=== PATIENT | female | born 1995 | race Two or more races ===

== ENCOUNTER 2017-10-06 08:43 | Day surgery (SDC) | payer SELFPAY ==
[2017-10-06] MEDS ORDERED: SUCCINYLCHOLINE CHLORIDE INJ 200 MG/10 ML VIAL ONE (09:10)
[2017-10-06] MEDS ORDERED: ROCURONIUM BROMIDE INJ 50 MG/5 ML VIAL IV ONE (09:10)
[2017-10-06] MEDS ORDERED: ONDANSETRON HCL INJ/PF 4 MG/2 ML SDV IV ONE ×2 (09:12→11:56)
[2017-10-06] MEDS ORDERED: DICYCLOMINE HCL INJ 20 MG/2 ML AMPULE IM ONE (09:12)
[2017-10-06] MEDS ORDERED: NORMAL SALINE 1000 ML 1,000 ML IV ONE (09:12)
[2017-10-06 09:56] LABS: ABSOLUTE EOSINOPHILS # (AUTO) 0.1 10^3/uL (0.0-0.6); ABSOLUTE LYMPHOCYTES (AUTO) 1.9 10^3/uL (0.5-4.7); ABSOLUTE MONOCYTES (AUTO) 0.5 10^3/uL (0.1-1.4); ABSOLUTE NEUT (AUTO) 3.1 10^3/uL (1.7-8.2); BASOPHILS % (AUTO) 0.4 % (0-2); EOSINOPHILS % (AUTO) 2.1 % (0-6); HEMATOCRIT 38.7 % (36.0-47.0); HEMOGLOBIN 12.3 g/dL (12.0-15.5); LYMPHOCYTES % (AUTO) 33.6 % (13-45); MEAN CORPUSCULAR HEMOGLOBIN 23.7 pg (27.0-33.4); MEAN CORPUSCULAR HGB CONC 31.7 g/dL (32.0-36.0); MEAN CORPUSCULAR VOLUME 75 fl (80-97); MONOCYTES % (AUTO) 9.1 % (3-13); PLATELET COUNT 418 10^3/uL (150-450); RED BLOOD COUNT 5.17 10^6/uL (3.72-5.28); RED CELL DISTRIBUTION WIDTH 16.5 % (11.5-14.0); SEGMENTED NEUTROPHILS % (AUTO) 54.8 % (42-78); TOTAL CELLS COUNTED % (AUTO) 100 %; WHITE BLOOD COUNT 5.7 10^3/uL (4.0-10.5)
[2017-10-06 10:16] LABS: ALANINE AMINOTRANSFERASE 77 U/L (9-52); ALBUMIN 4.3 g/dL (3.5-5.0); ALKALINE PHOSPHATASE 66 U/L (38-126); ANION GAP 12 (5-19); ASPARTATE AMINO TRANSFERASE 40 U/L (14-36); BILIRUBIN,DIRECT 0.2 mg/dL (0.0-0.4); BILIRUBIN,TOTAL 0.2 mg/dL (0.2-1.3); BLOOD UREA NITROGEN 17 mg/dL (7-20); CALCIUM 9.8 mg/dL (8.4-10.2); CARBON DIOXIDE 27 mmol/L (22-30); CHLORIDE 106 mmol/L (98-107); GLUCOSE 135 mg/dL (75-110); LIPASE 134.9 U/L (23-300); POTASSIUM 4.3 mmol/L (3.6-5.0); SODIUM 144.5 mmol/L (137-145)
--- NOTE | 2017-10-06 10:23 | RADIOLOGY REPORT (SQ) ---
EXAM DESCRIPTION: U/S ABDOMEN LIMITED W/O DOP COMPLETED DATE/TIME: 10/06/2017 9:55 am REASON FOR STUDY: RUQ PAIN COMPARISON: None. TECHNIQUE: Dynamic and static grayscale images acquired of the abdomen and recorded on PACS. Additio nal selected color Doppler and spectral images recorded. LIMITATIONS: None. FINDINGS: PANCREAS: The tail is not visualized. Visualized portions of the head and body are grossl y unremarkable. LIVER: Increased echogenicity with coarsened echotexture. Limited evaluation of the parenchyma secon shell to these findings. LIVER VASCULATURE: Normal directional flow of the main portal vein. GALLBLADDER: There is a 2.1 cm stone that is non mobile and situated within the neck of the gallbladd er. The gallbladder is hydropic at 13 cm in size. No wall thickening or pericholecystic fluid. ULTRASOUND-DETECTED GILMORE'S SIGN: Negative. INTRAHEPATIC DUCTS AND COMMON DUCT: CBD and intrahepatic ducts normal caliber. No filling defects. AORTA: No aneurysm. RIGHT KIDNEY: Normal size. Normal echogenicity. No solid or suspicious masses. No hydronephrosis. No calcifications. PERITONEAL AND RIGHT PLEURAL SPACE: No ascites or effusions. OTHER: No other significant findings. IMPRESSION: Cholelithiasis with a hydropic gallbladder and no gallbladder wall thickening or pericho lecystic fluid. These findings are equivocal for acute cholecystitis. TECHNICAL DOCUMENTATION: JOB ID: [id number] [employer]- All Rights Reserved Reading location - IP/workstation name: [email or web address]
[2017-10-06 11:42] LABS: APPEARANCE,URINE SLIGHTLY-CLOUDY; BILIRUBIN,URINE NEGATIVE (NEGATIVE); COLOR,URINE YELLOW; GLUCOSE, URINE NEGATIVE (NEGATIVE); KETONES,URINE NEGATIVE (NEGATIVE); LEUKOCYTE ESTERASE,URINE MODERATE (NEGATIVE); NITRITE,URINE NEGATIVE (NEGATIVE); PROTEIN,URINE NEGATIVE (NEGATIVE); URINE SPECIFIC GRAVITY 1.029
[2017-10-06] MEDS ORDERED: MORPHINE SULFATE 10 MG/ML INJ IV ONE (11:56)
[2017-10-06] MEDS ORDERED: RINGERS SOLUTION,LACTATED 1,000 ML IV ONE (11:57)
[2017-10-06] MEDS ORDERED: CEFOXITIN 1 GM/D5W RTU 1 GM/50 ML RTUPB IV ONE ×2 (12:06→12:07)
--- NOTE | 2017-10-06 12:12 | PDOC H&P ---
History of Present Illness Admission Date/PCP: 10/06/17 Patient complains of: RUQ pain History of Present Illness: FATIMAH FERNANDEZ is a 21 year old female with a 12 hr hx of RUQ pain, intense nausea; an US of the GB was done revealing hydrops of the GB with stones. Social History Smoking Status: Current Some Day Smoker Frequency of Alcohol Use: Occasional Hx Recreational Drug Use: Yes Drugs: Marijuana Family History Family History: Reviewed & Not Pertinent Parental Family History Reviewed: No Children Family History Reviewed: No Sibling(s) Family History Reviewed.: No Medication/Allergy Allergies/Adverse Reactions: No Known Allergies Allergy (Unverified 10/06/17 08:46) Physical Exam Vital Signs: Temp Pulse Resp BP Pulse Ox 98.2 F 84 19 148/83 H 99 10/06/17 08:49 10/06/17 08:49 10/06/17 08:49 10/06/17 08:49 10/06/17 08:49 Intake & Output 10/05/17 10/06/17 10/07/17 06:59 06:59 06:59 Weight 117.5 kg General appearance: PRESENT: no acute distress Eye exam: PRESENT: EOMI Mouth exam: PRESENT: moist Neck exam: PRESENT: full ROM Cardiovascular exam: PRESENT: RRR GI/Abdominal exam: PRESENT: soft, tenderness - RUQ Results Laboratory Results: 10/06/17 09:25 10/06/17 09:25 10/06/17 10/06/17 10/06/17 09:25 09:25 09:25 WBC 5.7 RBC 5.17 Hgb 12.3 Hct 38.7 MCV 75 L MCH 23.7 L MCHC 31.7 L RDW 16.5 H Plt Count 418 Seg Neutrophils % 54.8 Lymphocytes % 33.6 Monocytes % 9.1 Eosinophils % 2.1 Basophils % 0.4 Absolute Neutrophils 3.1 Absolute Lymphocytes 1.9 Absolute Monocytes 0.5 Absolute Eosinophils 0.1 Absolute Basophils 0.0 Sodium 144.5 Potassium 4.3 Chloride 106 Carbon Dioxide 27 Anion Gap 12 BUN 17 Creatinine 0.60 Est GFR ( Amer) > 60 Est GFR (Non-Af Amer) > 60 Glucose 135 H Calcium 9.8 Total Bilirubin 0.2 AST 40 H ALT 77 H Alkaline Phosphatase 66 Total Protein 7.0 Albumin 4.3 Lipase 134.9 Serum HCG, Qual NEGATIVE Urine Color Urine Appearance Urine pH Ur Specific [place] Urine Protein Urine Glucose (UA) Urine Ketones Urine Blood Urine Nitrite Ur Leukocyte Esterase Urine WBC (Auto) Urine RBC (Auto) 10/06/17 10:52 WBC RBC Hgb Hct MCV MCH MCHC RDW Plt Count Seg Neutrophils % Lymphocytes % Monocytes % Eosinophils % Basophils % Absolute Neutrophils Absolute Lymphocytes Absolute Monocytes Absolute Eosinophils Absolute Basophils Sodium Potassium Chloride Carbon Dioxide Anion Gap BUN Creatinine Est GFR ( Amer) Est GFR (Non-Af Amer) Glucose Calcium Total Bilirubin AST ALT Alkaline Phosphatase Total Protein Albumin Lipase Serum HCG, Qual Urine Color YELLOW Urine Appearance SLIGHTLY-CLOUDY Urine pH 5.0 Ur Specific [place] 1.029 Urine Protein NEGATIVE Urine Glucose (UA) NEGATIVE Urine Ketones NEGATIVE Urine Blood NEGATIVE Urine Nitrite NEGATIVE Ur Leukocyte Esterase MODERATE H Urine WBC (Auto) 12 Urine RBC (Auto) 1 Impressions: Abdomen Ultrasound 10/06/17 09:12 IMPRESSION: Cholelithiasis with a hydropic gallbladder and no gallbladder wall thickening or pericholecystic fluid. These findings are equivocal for acute cholecystitis. Assessment & Plan - Plan Summary Plan Summary: A/ Symptomatic cholelithiasis with hydrops of the GB Slight elevation of LFT Remaining blood work WNL P/ NPO IV Hydration Mefoxin 2 gr IVPB preop Laparoscopci cholecystectomy, possible open, possible cholangiogram Procedure, risks, benefits, complications, including bleeding from the liver and or injury of the bile ducts requiring transfer to a tertiary center have bee d/w patient, her questions were answered, and she decided to proceed
[2017-10-06] MEDS ORDERED: MORPHINE SULFATE 10 MG/ML INJ IV PRN (13:11)
--- NOTE | 2017-10-06 13:13 | ER Document Report ---
ED General - General Chief Complaint: Abdominal Pain Stated Complaint: STOMACH PAIN Time Seen by Provider: 10/06/17 09:07 TRAVEL OUTSIDE OF THE [place] IN LAST 30 DAYS: No - HPI Patient complains to provider of: Abdominal pain Notes: Patient coming in for evaluation of right upper quadrant abdominal pain sharp radiating to her back. Patient also states nausea no vomiting no diarrhea no fevers. Patient states started around 2:00 worse earlier this morning. Patient has a known gallstones. Patient when asked what she had a ER last meal was very unclear. Patient denies any other past medical history does not take any other medications. - Related Data Allergies/Adverse Reactions: No Known Allergies Allergy (Unverified 10/06/17 08:46) Past Medical History - Social History Smoking Status: Current Some Day Smoker Frequency of alcohol use: Occasional Drug Abuse: Marijuana Family History: Reviewed & Not Pertinent Patient has suicidal ideation: No Patient has homicidal ideation: No Renal/ Medical History: Denies: Hx Peritoneal Dialysis Review of Systems - Review of Systems Constitutional: No symptoms reported EENT: No symptoms reported Cardiovascular: No symptoms reported Respiratory: No symptoms reported Gastrointestinal: Abdominal pain Genitourinary: No symptoms reported Female Genitourinary: No symptoms reported Musculoskeletal: No symptoms reported Skin: No symptoms reported Hematologic/Lymphatic: No symptoms reported Neurological/Psychological: No symptoms reported -: Yes All other systems reviewed and negative Physical Exam - Vital signs Vitals: Temp Pulse Resp BP Pulse Ox 98.2 F 84 19 148/83 H 99 10/06/17 08:49 10/06/17 08:49 10/06/17 08:49 10/06/17 08:49 10/06/17 08:49 Interpretation: Normal - General General appearance: Appears well, Alert - HEENT Head: Normocephalic, Atraumatic Eyes: Normal Pupils: PERRL - Respiratory Respiratory status: No respiratory distress Chest status: Nontender Breath sounds: Normal Chest palpation: Normal - Cardiovascular Rhythm: Regular Heart sounds: Normal auscultation Murmur: No - Abdominal Inspection: Normal Distension: No distension Bowel sounds: Normal Tenderness: Tender - Right upper quadrant tenderness moderate, Baez's sign Organomegaly: No organomegaly - Back Back: Normal, Nontender - Extremities General upper extremity: Normal inspection, Nontender, Normal color, Normal ROM , Normal temperature General lower extremity: Normal inspection, Nontender, Normal color, Normal ROM , Normal temperature, Normal weight bearing. No: Opal's sign - Neurological Neuro grossly intact: Yes Cognition: Normal Orientation: AAOx4 Jacek Coma Scale Eye Opening: Spontaneous Jacek Coma Scale Verbal: Oriented Jacek Coma Scale Motor: Obeys Commands [place] Coma Scale Total: 15 Speech: Normal Motor strength normal: LUE, RUE, LLE, RLE Sensory: Normal - Psychological Associated symptoms: Normal affect, Normal mood - Skin Skin Temperature: Warm Skin Moisture: Dry Skin Color: Normal Course - Re-evaluation Re-evalutation: 10/06/17 14:38 Patient was to have symptomatic cholelithiasis. Did discuss results with surgeon on-call Dr. Baires who agrees to take the patient to the OR. Patient agrees with operative management. Patient was given cefoxitin 2 g per surgeon request - Vital Signs Vital signs: Temp Pulse Resp BP Pulse Ox 98.2 F 84 19 148/83 H 99 10/06/17 08:49 10/06/17 08:49 10/06/17 08:49 10/06/17 08:49 10/06/17 08:49 - Laboratory Result Diagrams: 10/06/17 09:25 10/06/17 09:25 Laboratory results interpreted by me: 10/06/17 10/06/17 10/06/17 09:25 09:25 10:52 MCV 75 L MCH 23.7 L MCHC 31.7 L RDW 16.5 H Glucose 135 H AST 40 H ALT 77 H Urine Urobilinogen 2.0 H Ur Leukocyte Esterase MODERATE H Discharge - Discharge Clinical Impression: Symptomatic cholelithiasis Condition: Good Disposition: ADMITTED OBSERVATION Admitting Provider: Surgicalist Haramn Baires Unit Admitted: OR
[2017-10-06] MEDS ORDERED: PROPOFOL INJ 200 MG/20 ML VIAL IV ONE (14:14)
[2017-10-06] MEDS ORDERED: ACETAMINOPHEN 100 ML IV ONE (14:14)
[2017-10-06] MEDS ORDERED: MIDAZOLAM 2 MG/2 ML INJ ONE (14:14)
[2017-10-06] MEDS ORDERED: DEXAMETHASONE SOD PHOSPHATE INJ 4 MG/1 ML VIAL ONE (14:14)
[2017-10-06] MEDS ORDERED: FENTANYL CITRATE INJ/PF 100 MCG/2 ML AMPUL ONE (14:14)
[2017-10-06] MEDS ORDERED: ONDANSETRON HCL INJ/PF 4 MG/2 ML SDV ONE (14:14)
[2017-10-06] MEDS ORDERED: BUPIVACAINE HCL 0.5%-EPI 1:200000 INJ/PF 30 ML VIAL ONE (14:29)
[2017-10-06] MEDS ORDERED: DIPHENHYDRAMINE HCL 50 MG/ML VIAL IV PRN (14:47)
[2017-10-06] MEDS ORDERED: MEPERIDINE HCL/PF INJ 25 MG/1 ML DISP.SYRIN IV PRN (14:47)
[2017-10-06] MEDS ORDERED: OXYCODONE-ACETAMINOPHEN 5-325 MG TABLET PO PRN ×2 (14:47)
[2017-10-06] MEDS ORDERED: FENTANYL CITRATE INJ/PF 100 MCG/2 ML AMPUL IV PRN ×3 (14:47)
[2017-10-06] MEDS ORDERED: PROMETHAZINE HCL INJ 25 MG/1 ML VIAL IV PRN ×2 (14:47)
[2017-10-06] MEDS ORDERED: OXYCODONE-ACETAMINOPHEN 5-325 MG TABLET ONE (16:15)
[2017-10-06] MEDS ORDERED: ONDANSETRON HCL INJ/PF 4 MG/2 ML SDV IV PRN ×2 (16:28→17:23)
[2017-10-06] MEDS ORDERED: KETOROLAC TROMETHAMINE INJ/PF 30 MG/1 ML SDV ONE (16:40)
[2017-10-06] MEDS: MORPHINE SULFATE 10 MG/ML INJ IV PRN (17:10)
--- NOTE | 2017-10-06 20:50 | OPERATIVE REPORT E ---
Operative Report NAME: FATIMAH FERNANDEZ : 1995 AGE: 21Y DATE OF SURGERY: 10/06/2017 ROOM: 228 PREOPERATIVE DIAGNOSES: 1. Symptomatic cholelithiasis. 2. Hydrops of the gallbladder. POSTOPERATIVE DIAGNOSES: 1. Symptomatic cholelithiasis. 2. Hydrops of the gallbladder. OPERATION: Laparoscopic cholecystectomy. SURGEON: NELA ARANA M.D. BRIM POUNCER: None. ESTIMATED BLOOD LOSS: Less than 5 mL. COMPLICATIONS: None. ANESTHESIA: General plus 20 mL of 1% lidocaine with epinephrine. FLUIDS: 700 mL. URINE OUTPUT: Moderate. DRAINS: None. INDICATIONS AND FINDINGS: This is a young, 21-year-old, -Stateless female who presented to the hospital with a 12 hour history of right upper quadrant pain, epigastric pain, intense nausea, and found to have cholelithiasis on ultrasound with normal liver profile. Decision was made to take the patient to surgery to undergo a laparoscopic cholecystectomy, possible open cholangiogram. Procedure risks and benefits and complications were explained to the patient including a possibility of bleeding or injury of the common bile duct which might require a repair in a tertiary center. All her questions were answered. She decided to proceed. DESCRIPTION OF PROCEDURE: Procedure was done in the operating room. The patient was placed in the supine position. General anesthesia was induced by endotracheal intubation. Her abdomen was prepped and draped in the usual fashion. An incision was made just below the umbilicus. The skin was tethered with towel clips, and a 5 mm port with Optiview adaptor and the scope was inserted through the abdominal wall and a CO2 pneumoperitoneum was established. Under direct visualization, three additional ports one 12 mm and two 5 mm ports were placed in the epigastrium and right lower quadrant of the abdomen, respectively. The gallbladder was grasped at the level of the fundus and elevated. The neck of the gallbladder was then grasped and pulled anteriorly to the patient's left. The critical view of safety was obtained by dividing the gallbladder neck peritoneal attachements medially and laterally. The dissection was then continued toward the cystic duct until a critical view of safety was obtained. Visualization of the cystic duct was accomplished with a Hook cautery at low settings and a 10 mm clip maple sugar maker was fired proximally and distally to the cystic duct division point, and this was then divided with scissors. The cystic duct was then divided posteriorly after it was singly clipped proximally and distally. The gallbladder was dissected off the liver bed using hook cautery at higher settings and extracted from the peritoneal cavity using an Endobag. The CO2 pneumoperitoneum was then re-established. The liver bed was inspected. No active bleeding was noted. The liver bed was irrigated with normal saline until clear, and this was slowly aspirated. Under direct visualization, using a fascial closure device, a bibrcl-ox-xpdbf O Vicryl suture was placed to close the epigastric fascial defect. The suture was left untied. All instruments were removed. The CO2 pneumoperitoneum was released. The ports were removed. The fascial defect of the epigastrium was closed with the previously placed pqrgbu-cz-lpipw 0 Vicryl suture. All incisions were closed with 4-O Vicryl running subcuticular suture with Dermabond applied. The patient tolerated the procedure well, was extubated, and transferred to the recovery room in satisfactory condition. DICTATING PHYSICIAN: NELA ARANA M.D. [id number] PHY#: [id number] ID: [id number] JOB#: [id number] ACCT: [id number] cc:NELA ARANA M.D. > MTDD
[2017-10-06] MEDS: CEFOXITIN SODIUM 2 GM in DEXTROSE 5%-WATER 100 ML IV SCH (21:24)
[2017-10-06] MEDS: FAMOTIDINE INJ/PF 20 MG/2 ML SDV IV SCH (21:24)
[2017-10-07] MEDS: MORPHINE SULFATE 10 MG/ML INJ IV PRN ×4 (00:05→08:49)
[2017-10-07] MEDS: NORMAL SALINE 1000 ML 1,000 ML IV PRN ×2 (01:06→10:59)
[2017-10-07] MEDS: CEFOXITIN SODIUM 2 GM in DEXTROSE 5%-WATER 100 ML IV SCH (05:32)
[2017-10-07] MEDS ORDERED: ENOXAPARIN SODIUM INJ 40 MG/0.4 ML DISP.SYRIN SUBCUT SCH (06:00)
[2017-10-07 07:38] LABS: ABSOLUTE BASOPHILS # (AUTO) 0.1 10^3/uL (0.0-0.2); ABSOLUTE LYMPHOCYTES (AUTO) 1.2 10^3/uL (0.5-4.7); ABSOLUTE MONOCYTES (AUTO) 0.5 10^3/uL (0.1-1.4); ABSOLUTE NEUT (AUTO) 9.4 10^3/uL (1.7-8.2); BASOPHILS % (AUTO) 0.7 % (0-2); EOSINOPHILS % (AUTO) 0.3 % (0-6); HEMATOCRIT 35.1 % (36.0-47.0); LYMPHOCYTES % (AUTO) 10.4 % (13-45); MEAN CORPUSCULAR HEMOGLOBIN 23.3 pg (27.0-33.4); MEAN CORPUSCULAR HGB CONC 31.3 g/dL (32.0-36.0); MEAN CORPUSCULAR VOLUME 75 fl (80-97); MONOCYTES % (AUTO) 4.7 % (3-13); PLATELET COUNT 411 10^3/uL (150-450); RED CELL DISTRIBUTION WIDTH 16.6 % (11.5-14.0); SEGMENTED NEUTROPHILS % (AUTO) 83.9 % (42-78); TOTAL CELLS COUNTED % (AUTO) 100 %; WHITE BLOOD COUNT 11.2 10^3/uL (4.0-10.5)
[2017-10-07 07:58] LABS: ALANINE AMINOTRANSFERASE 97 U/L (9-52); ALBUMIN 3.6 g/dL (3.5-5.0); ALKALINE PHOSPHATASE 61 U/L (38-126); ANION GAP 11 (5-19); ASPARTATE AMINO TRANSFERASE 69 U/L (14-36); BILIRUBIN,DIRECT 0.2 mg/dL (0.0-0.4); BILIRUBIN,TOTAL 0.2 mg/dL (0.2-1.3); BLOOD UREA NITROGEN 11 mg/dL (7-20); CALCIUM 9.5 mg/dL (8.4-10.2); CARBON DIOXIDE 23 mmol/L (22-30); CHLORIDE 109 mmol/L (98-107); GLUCOSE 124 mg/dL (75-110); POTASSIUM 4.3 mmol/L (3.6-5.0); SODIUM 142.9 mmol/L (137-145); TOTAL PROTEIN 6.5 g/dL (6.3-8.2)
[2017-10-07] MEDS: FAMOTIDINE INJ/PF 20 MG/2 ML SDV IV SCH (10:59)
--- NOTE | 2017-10-07 12:39 | PDOC PROGRESS REPORT ---
Subjective Progress Note for:: 10/07/17 Subjective:: no c/o Reason For Visit: SYMPTOMATIC CHOLELITHIASIS Physical Exam Vital Signs: Temp Pulse Resp BP Pulse Ox 97.8 F 78 16 119/61 99 10/07/17 11:05 10/07/17 11:05 10/07/17 11:05 10/07/17 11:05 10/07/17 11:05 Intake & Output 10/06/17 10/07/17 10/08/17 06:59 06:59 06:59 Intake Total 1200 Output Total 500 Balance 700 General appearance: PRESENT: no acute distress Respiratory exam: PRESENT: clear to auscultation edson Cardiovascular exam: PRESENT: RRR GI/Abdominal exam: PRESENT: soft, other - incisions c/d/i Results Laboratory Results: 10/07/17 07:16 10/07/17 07:16 10/07/17 10/07/17 07:16 07:16 WBC 11.2 H RBC 4.70 Hgb 11.0 L Hct 35.1 L MCV 75 L MCH 23.3 L MCHC 31.3 L RDW 16.6 H Plt Count 411 Seg Neutrophils % 83.9 H Lymphocytes % 10.4 L Monocytes % 4.7 Eosinophils % 0.3 Basophils % 0.7 Absolute Neutrophils 9.4 H Absolute Lymphocytes 1.2 Absolute Monocytes 0.5 Absolute Eosinophils 0.0 Absolute Basophils 0.1 Sodium 142.9 Potassium 4.3 Chloride 109 H Carbon Dioxide 23 Anion Gap 11 BUN 11 Creatinine 0.58 Est GFR ( Amer) > 60 Est GFR (Non-Af Amer) > 60 Glucose 124 H Calcium 9.5 Total Bilirubin 0.2 AST 69 H ALT 97 H Alkaline Phosphatase 61 Total Protein 6.5 Albumin 3.6 Impressions: Abdomen Ultrasound 10/06/17 09:12 IMPRESSION: Cholelithiasis with a hydropic gallbladder and no gallbladder wall thickening or pericholecystic fluid. These findings are equivocal for acute cholecystitis. Assessment & Plan - Plan Summary Plan Summary: A/ POD#1 after lap rocky for symptomatic cholelithiasis VSS, AF Tolerating po well WBC slight elevated, mnost likely reactive Slight elevateion ALT/ASt with normal total bilirubin PE unremarkable P/ Home today F/u in the office with NITHYA López in 1 week Tylenol only for pain Return to work on 10/19/17 No wound care needed shower only, bathe in 2 weeks Return to all activities without limitations
[2017-10-07 13:26] VITALS: BP 128/72
--- NOTE | 2017-10-07 16:34 | DISCHARGE SUMMARY E ---
Discharge Summary NAME: FATIMAH FERNANDEZ : 1995 AGE: 21Y ADMITTED: 10/06/2017 DISCHARGED: 10/07/2017 FINAL DIAGNOSIS: Symptomatic cholelithiasis. PROCEDURE PERFORMED: Laparoscopic cholecystectomy performed on October 06, 2017. COMPLICATIONS: None. HOSPITAL COURSE: This is a 21-year-old female, healthy, who came to the hospital with a 12-hour history of right upper quadrant pain and intense nausea. She was found to have symptomatic cholelithiasis. The patient underwent an uneventful laparoscopic cholecystectomy on October 06, 2017. She was hospitalized overnight. Her fluids were then hep-locked. Her oral intake was well tolerated. She complained of minimal abdominal pain and blood work was within normal limits. Her vital signs remained stable. Physical examination was unremarkable. The patient was discharged home on October 07, 2017. DISCHARGE ORDERS: The patient was discharged on October 07, 2017. Follow-up appointment in the surgery clinic with the physician outpatient physical therapist assistant, Amaya Giron, in one week. Tylenol only for pain. Shower only, bathe in two weeks. Return to work next week on Thursday October 19, 2017, without limitations. Regular diet. DICTATING PHYSICIAN: NEAL ARANA M.D. [id number] PHY#: [id number] ID: [id number] JOB#: [id number] ACCT: [id number] cc:Ana M WOLF MD, M.D. [facility], >
== END 2017-10-07 13:41 | disposition home or self-care (01) ==
LOC: ER 08:43 → OROUT 13:29 → EH 13:29 → UNDOADMOB 13:29 → ER 13:29 → 2S 16:48 → EH 16:48 → 2S 16:48 → UNDODISOB 10-07 13:41 → OROUT 10-07 13:41
PROVIDERS: ATTEND Surgery
PROC: 0FT44ZZ Resection of Gallbladder, Percutaneous Endoscopic Approach (ICD-10-PCS; principal; 2017-10-06 15:00)
DX: K80.10 Calculus of gallbladder with chronic cholecystitis without obstruction (principal); K82.1 Hydrops of gallbladder; F17.200 Nicotine dependence, unspecified, uncomplicated; F12.10 Cannabis abuse, uncomplicated
CPT/HCPCS: 47562; 99285; 96372; 96361; 96375; 96365; 36415 ×2; 87040; 83690; 84703; 85025 ×2; 80053 ×2; 81001; 88304 ×2; 76705; J2250; J3490 ×2; J1100; J0500; J0694 ×3; J3010; J1885; J2270 ×2; J0330; J2405; J7030 ×2; J7120; J2704; S0028 ×2; J0131; 790

== ENCOUNTER 2019-11-19 08:32 | Emergency (ER) | payer SELFPAY ==
--- NOTE | 2019-11-19 09:46 | ER Document Report ---
ED General - General Chief Complaint: Vag Bleeding, +preg <12wks Stated Complaint: VAGINAL BLEEDING Time Seen by Provider: 11/19/19 09:16 Primary Care Provider: [facility] [Provider Group] - Follow up in 3-5 days Notes: Patient is a G2, P1 23-year-old female who presents emergency department who presents the emergency department with vaginal bleeding. Patient states that she is about 4 weeks . Last menstrual cycle was November 15. She states that this morning when she woke up she felt a little bit of cramping and when she went to go wipe, saw a little bit of blood on her toilet paper. Patient denies any clots. Denies any past medical history. She does not take any medications. Started vitamins the other day. Has not seen OB for care yet. TRAVEL OUTSIDE OF THE [place] IN LAST 30 DAYS: No - Related Data Allergies/Adverse Reactions: No Known Allergies Allergy (Unverified 10/06/17 08:46) Past Medical History - Social History Smoking Status: Never Smoker Family History: Reviewed & Not Pertinent Patient has homicidal ideation: No Renal/ Medical History: Denies: Hx Peritoneal Dialysis Review of Systems - Review of Systems Notes: REVIEW OF SYSTEMS: CONSTITUTIONAL : Denies recent illness. Denies recent unintentional weight loss. Denies fever, chills, or sweats. EENT: Denies eye, ear, throat, or mouth pain, discharge, or symptoms. Denies nasal or sinus congestion. CARDIOVASCULAR: Denies chest pain. RESPIRATORY: Denies shortness of breath, cough, congestion, difficulty breathing, or wheezing. GASTROINTESTINAL: Denies nausea, vomiting, and diarrhea. Denies abdominal pain. Denies constipation. GENITOURINARY: Denies difficulty urinating, burning, blood in urine, urgency or frequency. FEMALE GENITOURINARY: See HPI. MUSCULOSKELETAL: Denies neck and back pain. Denies joint pain or swelling. SKIN: Denies rash, itchiness, or lesions HEMATOLOGIC : Denies easy bruising or bleeding. LYMPHATIC: Denies swollen, painful, enlarged glands. NEUROLOGICAL: Denies no numbness or tingling denies weakness. Denies headache. Denies altered mental status. Denies alteration in speech. PSYCHIATRIC: Denies stress, anxiety, alteration in sleep patterns, or depression. All other systems reviewed and negative. Physical Exam - Vital signs Vitals: Temp Pulse Resp BP Pulse Ox 98.6 F 78 18 134/68 H 100 11/19/19 08:44 11/19/19 08:44 11/19/19 08:44 11/19/19 08:44 11/19/19 08:44 - Notes Notes: PHYSICAL EXAMINATION: GENERAL: Appears well, healthy, well-nourished, no acute distress. HEAD: Normocephalic, atraumatic. EYES: PERRL, conjunctiva normal, all extraocular movements intact, sclera nonicteric ENT: Moist mucous membranes. NECK: Supple, no noticeable swelling, redness, rash. Normal range of motion. LUNGS: Equal breath sounds bilaterally and clear to auscultation. No wheezes rales or rhonchi. CARDIOVASCULAR: S1-S2, regular rate, regular rhythm. Radial pulses 2+, normal. ABDOMEN: Normoactive bowel sounds. Soft, nontender, no guarding, no rebound tenderness, and no masses palpated. EXTREMITIES: Normal strength and range of motion, no pitting or edema. No cyanosis. NEUROLOGICAL: Moves all extremities upon command. Strength 5/5 in all extremities. PSYCH: Normal mood, normal affect. SKIN: Warm, dry. No rash, lesions, ulcerations noted. Normal skin turgor. Course - Re-evaluation Re-evalutation: 11/19/19 13:03 Patient has a gestational sac, in her uterus off of ultrasound. Lab results confirmed that she is with a quantitative beta-hCG of 3005. Chemistries are unremarkable. Laboratory studies are also unremarkable. Urinalysis shows she has ketones in her urine. Advised the patient to drink more fluids. She is in agreement with this plan. She will follow-up with OB. Patient will also receive her RhoGam shot here in the emergency department. Follow-up precautions were given. Verbal discharge instructions were given to the patient. They verbalized understanding. They are stable for discharge. - Vital Signs Vital signs: Temp Pulse Resp BP Pulse Ox 98.0 F 87 20 115/67 98 11/19/19 13:57 11/19/19 13:57 11/19/19 13:57 11/19/19 13:57 11/19/19 13:57 - Laboratory Result Diagrams: 11/19/19 10:20 11/19/19 10:20 Laboratory results interpreted by me: 11/19/19 11/19/19 11/19/19 10:20 10:20 11:20 WBC 3.7 L Hgb 11.4 L Hct 35.6 L MCV 75 L MCH 24.1 L RDW 16.0 H Beta HCG, Quant 3005.00 H Urine Protein 30 H Urine Ketones 80 H Ur Leukocyte Esterase TRACE H Urine Ascorbic Acid 40 H Discharge - Discharge Clinical Impression: Vaginal bleeding during Condition: Stable Disposition: HOME, SELF-CARE Additional Instructions: You were seen today in the emergency department vaginal bleeding. You received your RhoGam shot here in the emergency department. Please follow-up with OB in regards to this visit for follow-up labs. Please do not have sex or place anyt rosa in your vagina until you are cleared by OB. If you start passing clots, return to the emergency department or follow-up with your OB. Referrals: [facility] [Provider Group] - Follow up in 3-5 days
[2019-11-19 10:33] LABS: ABSOLUTE LYMPHOCYTES (AUTO) 1.3 10^3/uL (0.5-4.7); ABSOLUTE MONOCYTES (AUTO) 0.3 10^3/uL (0.1-1.4); BASOPHILS % (AUTO) 0.9 % (0-2); EOSINOPHILS % (AUTO) 0.4 % (0-6); HEMATOCRIT 35.6 % (36.0-47.0); HEMOGLOBIN 11.4 g/dL (12.0-15.5); LYMPHOCYTES % (AUTO) 34.6 % (13-45); MEAN CORPUSCULAR HEMOGLOBIN 24.1 pg (27.0-33.4); MEAN CORPUSCULAR HGB CONC 32.1 g/dL (32.0-36.0); MEAN CORPUSCULAR VOLUME 75 fl (80-97); MONOCYTES % (AUTO) 9.5 % (3-13); PLATELET COUNT 419 10^3/uL (150-450); RED BLOOD COUNT 4.74 10^6/uL (3.72-5.28); SEGMENTED NEUTROPHILS % (AUTO) 54.6 % (42-78); TOTAL CELLS COUNTED % (AUTO) 100 %; WHITE BLOOD COUNT 3.7 10^3/uL (4.0-10.5)
[2019-11-19 10:48] LABS: ALBUMIN 4.4 g/dL (3.5-5.0); ALKALINE PHOSPHATASE 70 U/L (38-126); ANION GAP 10 (5-19); ASPARTATE AMINO TRANSFERASE 22 U/L (14-36); BILIRUBIN,TOTAL 0.5 mg/dL (0.2-1.3); BLOOD UREA NITROGEN 11 mg/dL (7-20); CALCIUM 9.7 mg/dL (8.4-10.2); CARBON DIOXIDE 24 mmol/L (22-30); CHLORIDE 105 mmol/L (98-107); GLUCOSE 97 mg/dL (75-110); POTASSIUM 4.5 mmol/L (3.6-5.0); TOTAL PROTEIN 7.7 g/dL (6.3-8.2)
[2019-11-19 11:40] LABS: APPEARANCE,URINE SLIGHTLY-CLOUDY; BILIRUBIN,URINE NEGATIVE (NEGATIVE); COLOR,URINE YELLOW; GLUCOSE, URINE NEGATIVE (NEGATIVE); KETONES,URINE 80 mg/dL (NEGATIVE); LEUKOCYTE ESTERASE,URINE TRACE (NEGATIVE); NITRITE,URINE NEGATIVE (NEGATIVE); PROTEIN,URINE 30 mg/dL (NEGATIVE); URINE SPECIFIC GRAVITY 1.031; UROBILINOGEN,URINE NEGATIVE mg/dL (<2.0)
--- NOTE | 2019-11-19 12:57 | RADIOLOGY REPORT (SQ) ---
EXAM DESCRIPTION: U/S OB TRANSVAG W/DOPPLER IMAGES COMPLETED DATE/TIME: 11/19/2019 12:38 pm REASON FOR STUDY: vaginal bleeding; COMPARISON: None. TECHNIQUE: Transvaginal static and realtime grayscale images acquired of the pelvis. Additional jordan cted spectral and color Doppler images recorded. All images stored on PACs. CLINICAL AGE: LMP 10/19/2019. EGA based on LMP 4 weeks 3 days. BHCG: Not available. LIMITATIONS: None. FINDINGS: UTERUS: The uterus measures 9.3 x 6.4 x 5.4 cm. There is an intrauterine gestational sac that contains no yolk sac or embryo ; based on the MSD of 7 mm the EGA is 5 weeks 2 days. RIGHT ADNEXA: The right ovary measures 1.6 x 2 x 1.1 cm and on Doppler there is intact arterial inflo w and venous outflow within the ovarian stroma. There is no adnexal mass. LEFT ADNEXA: The left ovary measures 2.2 x 2 x 1 cm and on Doppler there is intact arterial inflow an d venous outflow within the ovarian stroma. There is no adnexal mass. FREE FLUID: None. OTHER: The cervix measures 3.2 cm in length. IMPRESSION: Intrauterine gestational sac without a yolk sac or embryo. The findings likely represen t an early intrauterine gestation and correlation with serial beta HCGs is recommended. TECHNICAL DOCUMENTATION: JOB ID: [id number] 2010 [employer]- All Rights Reserved Reading location - IP/workstation name: [email or web address]
[2019-11-19 13:59] VITALS: BP 115/67
== END 2019-11-19 13:57 | disposition home or self-care (01) ==
LOC: ER 08:32
DX: O20.9 Hemorrhage in early pregnancy, unspecified (principal); O36.0910 Maternal care for other rhesus isoimmunization, first trimester, not applicable or unspecified; O26.891 Other specified pregnancy related conditions, first trimester; R82.4 Acetonuria; Z3A.01 Less than 8 weeks gestation of pregnancy
CPT/HCPCS: 99284; 86900; 86901; 36415; 86850; 84702; 83690; 85025; 80053; 81001; 76817; 93976; J2790

== ENCOUNTER 2019-11-23 09:35 | Emergency (ER) | payer SELFPAY ==
--- NOTE | 2019-11-23 10:12 | ER Document Report ---
ED General - General Chief Complaint: Vag Bleeding, +preg <12wks Stated Complaint: VAGINAL BLEEDING/6 WEEKS Time Seen by Provider: 11/23/19 09:52 Primary Care Provider: [facility] [Provider Group] - Follow up as needed Notes: 23-year-old female approximately 4 weeks presenting with continued vaginal spotting since November 18. States she had an episode of spotting yesterday and woke up this morning and was spotting again. Denies any heavy clots. Reports mild abdominal cramping. No fevers, chills, low back pain, light headness, dizziness or other symptoms reported. She was seen on the for the same symptoms. Beta hCG was 3005, and ultrasound showed intrauterine gestational sac without a yolk sac or embryo. Also received RhoGam on the . She has an appointment scheduled with OB tomorrow. TRAVEL OUTSIDE OF THE [place] IN LAST 30 DAYS: No - Related Data Allergies/Adverse Reactions: No Known Allergies Allergy (Unverified 11/23/19 10:21) Home Medications: vitamin Past Medical History - Social History Smoking Status: Never Smoker Chew tobacco use (# tins/day): No Frequency of alcohol use: Rare Drug Abuse: None Family History: Reviewed & Not Pertinent Patient has homicidal ideation: No - Past Medical History Cardiac Medical History: Reports: None Pulmonary Medical History: Reports: None EENT Medical History: Reports: None Neurological Medical History: Reports: None Renal/ Medical History: Reports: None. Denies: Hx Peritoneal Dialysis Review of Systems - Review of Systems Constitutional: No symptoms reported EENT: No symptoms reported Cardiovascular: No symptoms reported Respiratory: No symptoms reported Gastrointestinal: No symptoms reported Genitourinary: No symptoms reported Female Genitourinary: See HPI Musculoskeletal: No symptoms reported Skin: No symptoms reported Physical Exam - Vital signs Vitals: Temp Pulse Resp BP Pulse Ox 98.6 F 86 24 H 122/63 98 11/23/19 09:41 11/23/19 09:41 11/23/19 09:41 11/23/19 09:41 11/23/19 09:41 - Notes Notes: Adult General: GENERAL: Alert, interacts well. No acute distress HEAD: Normocephalic, atraumatic EYES: Extraocular movements intact. ENT: Airway patent. NECK: Full range of motion. Supple. Trachea midline. LUNGS: Clear to auscultation bilaterally, no wheezes, rales, or rhonchi. No respiratory distress. Nontender chest wall. HEART: Regular rate and rhythm. No murmurs, rubs or gallops. ABDOMEN: Soft, nontender. Nondistended. Bowel sounds present in all 4 quadrants. GENITOURINARY: Deferred EXTREMITIES: Moves all 4 extremities spontaneously. No edema. BACK: Moves all extremities with full range of motion. NEUROLOGICAL: Alert and oriented x3. Normal speech. Strength 5/ 5 in all extremities. PSYCH: Normal affect, normal mood. SKIN: Warm, dry, normal turgor. No rashes or lesions noted. - General General appearance: Appears well In distress: None Course - Re-evaluation Re-evalutation: 11/23/19 10:17 Beta-hCG and CBC ordered. Malik with patient I do not feel that additional ultrasound at this time would be beneficial she has an appointment with OB scheduled tomorrow. 11/23/19 11:17 Patient's hemoglobin came back at 10.9. Last hemoglobin on the was 11.4. Discussed with this with the patient. She states that she has a history of anemia. Has a history of blood transfusion approximately 4 years ago. Is that she is taking [id number]-[id number] iron supplementation she is also taking a vitamin. She continues to deny any dizziness, lightheadedness, chest pain or shortness of breath. Still pending results of beta-hCG. 11/23/19 12:06 [place] [facility] [place] [id number]. 11/23/19 12:42 Discussed with patient results of her beta-hCG. Recommend at this time patient follow-up with her OB tomorrow. She needs to continue to take vitamins and iron supplementation. Do not feel that a repeat vaginal ultrasound would be beneficial at this time as she had one performed 3 days ago and she is also seeing OB tomorrow. Discussed return precautions to include fevers, chills, shortness of breath, chest pain or increased vaginal bleeding. Patient acknowledges and verbalized understanding of instructions and plan. 11/23/19 12:44 - Vital Signs Vital signs: Temp Pulse Resp BP Pulse Ox 98.4 F 71 20 119/55 L 100 11/23/19 12:42 11/23/19 12:42 11/23/19 12:42 11/23/19 12:42 11/23/19 12:42 - Laboratory Result Diagrams: 11/23/19 10:35 Laboratory results interpreted by me: 11/23/19 11/23/19 10:35 10:35 Hgb 10.9 L Hct 33.4 L MCV 74 L MCH 24.2 L RDW 16.4 H Beta HCG, Quant 69077.00 H - EKG Interpretation by Me Additional EKG results interpreted by me: 11/23/19 12:40 sinus rhythm, rate 65, SD 140, qtc 408, no st segment elevations or depressions Discharge - Discharge Clinical Impression: Vaginal bleeding before 22 weeks gestation, Vaginal bleeding during Condition: Stable Disposition: HOME, SELF-CARE Instructions: Bleeding During Early ([facility]) Additional Instructions: Keep your appointment with [facility] tomorrow. Order for you to follow-up with your OB in regards to your anemia and first trimester vaginal bleeding. Return precautions to the emergency department include development of new symptoms or worsening symptoms. Referrals: [facility] [Provider Group] - Follow up as needed
[2019-11-23 10:58] LABS: ABSOLUTE LYMPHOCYTES (AUTO) 1.5 10^3/uL (0.5-4.7); ABSOLUTE MONOCYTES (AUTO) 0.4 10^3/uL (0.1-1.4); ABSOLUTE NEUT (AUTO) 2.3 10^3/uL (1.7-8.2); BASOPHILS % (AUTO) 0.4 % (0-2); EOSINOPHILS % (AUTO) 0.4 % (0-6); HEMATOCRIT 33.4 % (36.0-47.0); HEMOGLOBIN 10.9 g/dL (12.0-15.5); LYMPHOCYTES % (AUTO) 35.2 % (13-45); MEAN CORPUSCULAR HEMOGLOBIN 24.2 pg (27.0-33.4); MEAN CORPUSCULAR HGB CONC 32.6 g/dL (32.0-36.0); MEAN CORPUSCULAR VOLUME 74 fl (80-97); PLATELET COUNT 388 10^3/uL (150-450); RED BLOOD COUNT 4.49 10^6/uL (3.72-5.28); RED CELL DISTRIBUTION WIDTH 16.4 % (11.5-14.0); TOTAL CELLS COUNTED % (AUTO) 100 %; WHITE BLOOD COUNT 4.2 10^3/uL (4.0-10.5)
[2019-11-23 12:43] VITALS: BP 119/55
== END 2019-11-23 12:45 | disposition home or self-care (01) ==
LOC: ER 09:35
DX: O46.90 Antepartum hemorrhage, unspecified, unspecified trimester (principal); O99.019 Anemia complicating pregnancy, unspecified trimester; D64.9 Anemia, unspecified; Z79.899 Other long term (current) drug therapy; Z3A.00 Weeks of gestation of pregnancy not specified
CPT/HCPCS: 36415; 84702; 85025; 99284

== ENCOUNTER 2019-11-26 05:41 | Emergency (ER) | payer MEDICAID ==
[2019-11-26 06:20] LABS: ABSOLUTE LYMPHOCYTES (AUTO) 1.2 10^3/uL (0.5-4.7); ABSOLUTE MONOCYTES (AUTO) 0.4 10^3/uL (0.1-1.4); ABSOLUTE NEUT (AUTO) 2.7 10^3/uL (1.7-8.2); BASOPHILS % (AUTO) 0.9 % (0-2); EOSINOPHILS % (AUTO) 0.7 % (0-6); HEMATOCRIT 32.7 % (36.0-47.0); HEMOGLOBIN 10.8 g/dL (12.0-15.5); LYMPHOCYTES % (AUTO) 27.8 % (13-45); MEAN CORPUSCULAR HEMOGLOBIN 24.4 pg (27.0-33.4); MEAN CORPUSCULAR VOLUME 74 fl (80-97); MONOCYTES % (AUTO) 9.5 % (3-13); PLATELET COUNT 354 10^3/uL (150-450); RED BLOOD COUNT 4.42 10^6/uL (3.72-5.28); RED CELL DISTRIBUTION WIDTH 16.6 % (11.5-14.0); SEGMENTED NEUTROPHILS % (AUTO) 61.1 % (42-78); TOTAL CELLS COUNTED % (AUTO) 100 %; WHITE BLOOD COUNT 4.4 10^3/uL (4.0-10.5)
[2019-11-26 06:36] LABS: ALKALINE PHOSPHATASE 65 U/L (38-126); ANION GAP 8 (5-19); ASPARTATE AMINO TRANSFERASE 17 U/L (14-36); BILIRUBIN,TOTAL 0.5 mg/dL (0.2-1.3); BLOOD UREA NITROGEN 7 mg/dL (7-20); CALCIUM 9.5 mg/dL (8.4-10.2); CARBON DIOXIDE 25 mmol/L (22-30); CHLORIDE 105 mmol/L (98-107); GLUCOSE 95 mg/dL (75-110); POTASSIUM 3.9 mmol/L (3.6-5.0); TOTAL PROTEIN 7.1 g/dL (6.3-8.2)
[2019-11-26 06:56] LABS: APPEARANCE,URINE CLEAR; BILIRUBIN,URINE NEGATIVE (NEGATIVE); COLOR,URINE STRAW; GLUCOSE, URINE NEGATIVE (NEGATIVE); KETONES,URINE NEGATIVE (NEGATIVE); LEUKOCYTE ESTERASE,URINE NEGATIVE (NEGATIVE); NITRITE,URINE NEGATIVE (NEGATIVE); PROTEIN,URINE NEGATIVE (NEGATIVE); URINE SPECIFIC GRAVITY 1.004; UROBILINOGEN,URINE NEGATIVE mg/dL (<2.0)
--- NOTE | 2019-11-26 09:01 | ER Document Report ---
Entered by MARVEL CHU SCRIBE 11/26/19 0754 Acting as scribe for:MOON BYNUM MD ED GI/ - General Chief Complaint: OB Problem (<20wks) Stated Complaint: VAGINAL BLEEDING 6 WKS PREG Time Seen by Provider: 11/26/19 07:09 Primary Care Provider: LINDA CAPONE MD [Primary Care Provider] - Follow up as needed Mode of Arrival: Ambulatory Information source: Patient Notes: This 23-year-old female patient presents emergency department today with complaints of vaginal bleeding. Patient was seen here on 11/18 and had a quantitative beta-hCG of 3005, on 11/22 the patient's [place] beta-hCG was 65254, today the patient's quantitative beta-hCG is 28,652. Patient reports that she was seen [facility] after her visit here on 11/18 and she had an ultrasound which showed twins. Patient states she has not had any cramping with her vaginal bleeding today. TRAVEL OUTSIDE OF THE [place] IN LAST 30 DAYS: No - Related Data Allergies/Adverse Reactions: No Known Allergies Allergy (Unverified 11/23/19 10:21) Home Medications: Past Medical History - General Information source: Patient - Social History Smoking Status: Never Smoker Cigarette use (# per day): No Frequency of alcohol use: None Drug Abuse: None Family History: Reviewed & Not Pertinent Patient has homicidal ideation: No - Medical History Medical History: Negative Past Surgical History: Reports: Hx Abdominal Surgery - gastric sleeve in 2019, Hx Cholecystectomy Review of Systems - Review of Systems Constitutional: No symptoms reported EENT: No symptoms reported Cardiovascular: No symptoms reported Respiratory: No symptoms reported Gastrointestinal: denies: Abdominal pain Genitourinary: No symptoms reported Female Genitourinary: See HPI, , Vaginal bleeding Musculoskeletal: No symptoms reported Skin: No symptoms reported Hematologic/Lymphatic: No symptoms reported Neurological/Psychological: No symptoms reported -: Yes All other systems reviewed and negative Physical Exam - Vital signs Vitals: Temp Pulse Resp BP Pulse Ox 98.4 F 84 18 121/86 H 100 11/26/19 05:49 11/26/19 05:49 11/26/19 05:49 11/26/19 05:49 11/26/19 05:49 - Notes Notes: Physical Exam: General: Alert, appears well. HEENT: Normocephalic. Atraumatic. PERRL. Extraocular movements intact. Orop harynx clear. Neck: Supple. Non-tender. Respiratory: No respiratory distress. Clear and equal breath sounds bilaterally. Cardiovascular: Regular rate and rhythm. Abdominal: Normal Inspection. Non-tender. No distension. Normal Bowel Sounds. Back: No gross abnormalities. Extremities: Moves all four extremities. Upper extremities: Normal inspection. Normal ROM. Lower extremities: Normal inspection. No edema. Normal ROM. Neurological: Normal cognition. AAOx4. Normal speech. Psychological: Normal affect. Normal Mood. Skin: Warm. Dry. Normal color. Course - Vital Signs Vital signs: Temp Pulse Resp BP Pulse Ox 98.4 F 84 18 121/86 H 100 11/26/19 05:49 11/26/19 05:49 11/26/19 05:49 11/26/19 05:49 11/26/19 05:49 - Laboratory Result Diagrams: 11/26/19 06:05 11/26/19 06:05 Laboratory results interpreted by me: 11/26/19 11/26/19 11/26/19 06:05 06:05 06:30 Hgb 10.8 L Hct 32.7 L MCV 74 L MCH 24.4 L RDW 16.6 H Beta HCG, Quant 43311.00 H Urine Blood LARGE H Discharge - Discharge Clinical Impression: Vaginal bleeding affecting early Twin Qualifiers: Multiple gestation type: unspecified Trimester: first trimester Qualified Code(s): O30.001 - Twin , unspecified number of placenta and unspecified number of amniotic sacs, first trimester Condition: Stable Disposition: HOME, SELF-CARE Additional Instructions: Bleeding During Early You have been evaluated for passing blood while . While we take this symptom very seriously, most women with your degree of bleeding will go on to have a perfectly normal baby. At this time, there is no indication that a miscarriage will occur. (A miscarriage occurs when the fetus is abnormal. There is no medicine or treatment to prevent it.) A more serious cause of bleeding is tubal . An ultrasound can show whether the is in the uterus or in the tube. Sometimes in early , no fetus is seen. In this case, careful follow-up, including repeat blood tests and repeat ultrasound, is necessary. You should rest in bed until the symptoms have resolved. Do not douche or have sex for at least a week, or until OK'd by the doctor. Don't use tampons. Call the doctor or return for re-examination if there is an increase in bleeding or cramping, extreme weakness, fainting, new abdominal pain, fever, or passage of tissue. The ultrasound shows a twin measuring 6 weeks 0 days for each fetus. Twin A does not show a heart beat at this point, twin B shows a heart rate of 65. Drink plenty of fluids, and rest. Call [facility] to schedule a follow-up appointment in the next few days. RETURN TO THE EMERGENCY ROOM IF ANY NEW OR WORSENING SYMPTOMS. Referrals: LINDA CAPONE MD [Primary Care Provider] - Follow up in 3-5 days I personally performed the services described in the documentation, reviewed and edited the documentation which was dictated to the scribe in my presence, and it accurately records my words and actions.
--- NOTE | 2019-11-26 09:36 | RADIOLOGY REPORT (SQ) ---
EXAM DESCRIPTION: U/S OB TRANSVAGINAL W/O DOP IMAGES COMPLETED DATE/TIME: 11/26/2019 9:20 am REASON FOR STUDY: 5-6 wks, bleeding, rising HCG COMPARISON: 11/19/2019 TECHNIQUE: Dynamic and static grayscale images acquired of the pelvis via transvaginal approach and recorded on PACS. Additional selected color Doppler and spectral images recorded. LIMITATIONS: None. FINDINGS: Twin intrauterine with crown-rump length of 2.8 mm and 3.3 mm, twin a and twin B respectively. No heart tones twin a. heart tones 65 beats per minute twin B. estimated gestational age 6 weeks 0 days. Estimated due date 07/21/2020. No subchorionic hemorrhage. IMPRESSION: 6 weeks 0 day twin with no heart tones twin a. TECHNICAL DOCUMENTATION: JOB ID: [id number] 2010 [employer]- All Rights Reserved Rev-11/09 Reading location - IP/workstation name: [email or web address]
[2019-11-26 10:08] VITALS: BP 127/79
== END 2019-11-26 10:08 | disposition home or self-care (01) ==
LOC: ER 05:41
DX: O20.9 Hemorrhage in early pregnancy, unspecified (principal); O30.001 Twin pregnancy, unspecified number of placenta and unspecified number of amniotic sacs, first trimester; O99.841 Bariatric surgery status complicating pregnancy, first trimester; Z3A.01 Less than 8 weeks gestation of pregnancy; Z79.899 Other long term (current) drug therapy
CPT/HCPCS: 36415; 76817; 80053; 81001; 83690; 84702; 85025; 99284

== ENCOUNTER 2020-07-21 00:52 | Inpatient (IN) | payer MEDICAID ==
[2020-07-21 01:33] LABS: APPEARANCE,URINE CLEAR; BILIRUBIN,URINE NEGATIVE (NEGATIVE); COLOR,URINE YELLOW; GLUCOSE, URINE NEGATIVE (NEGATIVE); KETONES,URINE NEGATIVE (NEGATIVE); LEUKOCYTE ESTERASE,URINE TRACE (NEGATIVE); NITRITE,URINE NEGATIVE (NEGATIVE); PROTEIN,URINE NEGATIVE (NEGATIVE); URINE SPECIFIC GRAVITY 1.009; UROBILINOGEN,URINE NEGATIVE mg/dL (<2.0)
[2020-07-21 02:18] LABS: URINE AMPHETAMINES SCREEN NEGATIVE; URINE BARBITURATES SCREEN NEGATIVE; URINE BENZODIAZEPINES SCREEN NEGATIVE; URINE COCAINE SCREEN NEGATIVE; URINE MARIJUANA (THC) SCREEN NEGATIVE; URINE METHADONE SCREEN NEGATIVE; URINE PHENCYCLIDINE SCREEN NEGATIVE
[2020-07-21] MEDS ORDERED: RINGERS SOLUTION,LACTATED 500 ML IV ONE (02:49)
[2020-07-21] MEDS ORDERED: RINGERS SOLUTION,LACTATED 1,000 ML IV PRN (02:49)
[2020-07-21] MEDS ORDERED: OXYTOCIN 10 UNIT/ML VIAL ONE (02:54)
[2020-07-21] MEDS ORDERED: LIDOCAINE 1% INJ-PF (10 MG/ML) 30 ML SDV ONE (02:55)
[2020-07-21] MEDS ORDERED: MISOPROSTOL 0.2 MG TABLET ONE (02:55)
[2020-07-21] MEDS ORDERED: OXYTOCIN/0.9 % SODIUM CHLORIDE 30 UNIT/500 ML RTUINJ ONE (02:55)
[2020-07-21 03:27] LABS: ABSOLUTE LYMPHOCYTES (AUTO) 1.6 10^3/uL (0.5-4.7); ABSOLUTE MONOCYTES (AUTO) 0.6 10^3/uL (0.1-1.4); ABSOLUTE NEUT (AUTO) 4.4 10^3/uL (1.7-8.2); BASOPHILS % (AUTO) 0.4 % (0-2); EOSINOPHILS % (AUTO) 0.4 % (0-6); HEMATOCRIT 31.9 % (36.0-47.0); HEMOGLOBIN 10.2 g/dL (12.0-15.5); LYMPHOCYTES % (AUTO) 24.2 % (13-45); MEAN CORPUSCULAR HEMOGLOBIN 24.5 pg (27.0-33.4); MEAN CORPUSCULAR HGB CONC 31.8 g/dL (32.0-36.0); MEAN CORPUSCULAR VOLUME 77 fl (80-97); MONOCYTES % (AUTO) 9.1 % (3-13); PLATELET COUNT 287 10^3/uL (150-450); RED BLOOD COUNT 4.15 10^6/uL (3.72-5.28); RED CELL DISTRIBUTION WIDTH 16.7 % (11.5-14.0); SEGMENTED NEUTROPHILS % (AUTO) 65.9 % (42-78); TOTAL CELLS COUNTED % (AUTO) 100 %; WHITE BLOOD COUNT 6.7 10^3/uL (4.0-10.5)
[2020-07-21] MEDS ORDERED: EPHEDRINE SULFATE INJ 50 MG/1 ML AMPULE ONE (04:49)
[2020-07-21] MEDS ORDERED: ROPIVACAINE HCL 0.2% INJ/PF (2 MG/ML) 20 ML SDV ONE (04:50)
[2020-07-21] MEDS ORDERED: FENTANYL/BUPIVACAINE/NS/PF 0 MCG/0 ML RTUINJ EPI ONE (04:50)
--- NOTE | 2020-07-21 05:20 | Admission Physical ---
Datetime Report Generated by CPN: 07/21/2020 05:20 CURRENT ADMISSION Chief Complaint: Uterine Contractions Indication for Induction: Not Applicable Admit Impression : Term, Intrauterine Admit Plan: Admit to Unit; Initiate Labor Protocol ALLERGIES Medication Allergies: No Medication Allergies: No Known Allergies (11/23/2019) Latex: No Latex Allergies Food Allergies: none Environmental Allergies: none OBSTETRICAL HISTORY EDC: 07/25/2020 00:00 : 2 Para: 1 Term: 1 : 0 SAB: 0 IAB: 0 Ectopic: 0 Livin Cesareans: 0 VBACs: 0 Multiple Births: 0 Gestational Diabetes: No Rh Sensitization: No Incompetent Cervix: No SERGIO: No Infertility: No ART Treatment: No Uterine Anomaly: No IUGR: No Hx Previous C/S: No Macrosomia: No Hx Loss/Stillborn: No PIH: No Hx : No Placenta Previa/Abruption: No Depression/PP Depression: No PTL/PROM: No Post Hemorrhage: No Current Procedures: Ultrasound Obstetrical History Comments: G1- 2010, vaginal G2- Current SEE RECORDS Alcohol: No Marijuana : No Cocaine: No Other Illicit Drugs: No Cigarettes: Former Smoker. [id number] MEDICAL HISTORY Diabetes: No Blood Transfusion: No Pulmonary Disease (Asthma, TB): No Breast Disease: No Hypertension: No Wet Process Technician Surgery: No Heart Disease: No Hosp/Surgery: Yes Autoimmune Disorder: No Anesthetic Complications: No Kidney Disease: No Abnormal Pap Smear: No Neuro/Epilepsy: No Psychiatric Disorders: No Other Medical Diseases: No Hepatitis/Liver Disease: No Significant Family History: No Varicosities/Phlebitis: No Trauma/Violence : No Thyroid Dysfunction: No Medical History Comments: gallbladder, gastric sleeve INFECTIOUS HISTORY Gonorrhea: No Genital Herpes: No Chlamydia: Yes Tuberculosis: No Syphilis: No Hepatitis: No HIV/AIDS Exposure: No Rash or Viral Illness: No HPV: No Infectious History Comments: Hx of chlamydia outside of - 10 years ago per pt PHYSICAL EXAM General: Normal HEENT: Normal Neurologic: Normal Thyroid: Normal Heart: Normal Lungs: Normal Breast: Deferred Back: Normal Abdomen: Normal Genitourinary Exam: Normal Extremities: Normal DTRs: Normal Pelvic Type: Adequate FETUS A EGA: 39.3 PLANS FOR LABOR AND DELIVERY Labor and Delivery: None Pain Management: Epidural Feeding Preference: Breast Benefit of Breast Feed Discussed: Yes Circumcision: N/A INFORMED CONSENT Signature: with User ID: [email or web address]
[2020-07-21] MEDS ORDERED: OXYTOCIN/0.9 % SODIUM CHLORIDE 30 UNIT/500 ML RTUINJ IV PRN (05:24)
[2020-07-21] MEDS ORDERED: PSEUDOEPHEDRINE HCL 30 MG TABLET PO PRN (05:24)
[2020-07-21] MEDS ORDERED: ACETAMINOPHEN WITH CODEINE #3 TABLET PO PRN ×2 (05:24)
[2020-07-21] MEDS ORDERED: DIPH/PERTUSS(ACELL)/TETANUS VAC/PF 0.5 ML SYR (>=10YO) IM PRN (05:24)
[2020-07-21] MEDS ORDERED: ACETAMINOPHEN 650 MG SUPP.RECT PR PRN (05:24)
[2020-07-21] MEDS ORDERED: MAG HYDROX/AL HYDROX/SIMETH SUSP 30 ML UDCUP PO PRN (05:24)
[2020-07-21] MEDS ORDERED: MAGNESIUM HYDROXIDE SUSP 30 ML UDCUP PO PRN (05:24)
[2020-07-21] MEDS ORDERED: VARICELLA VACC/PF (1350 UNIT/0.5 ML) 0.5 ML VIAL SUBCUT PRN (05:24)
[2020-07-21] MEDS ORDERED: GLYCERIN/WITCH HAZEL LEAF 1 EACH MED..WIPE TP PRN (05:24)
[2020-07-21] MEDS ORDERED: HYDROCODONE/ACETAMINOPHEN 5-325 MG TABLET PO PRN (05:24)
[2020-07-21] MEDS ORDERED: ACETAMINOPHEN 325 MG TABLET PO PRN (05:24)
[2020-07-21] MEDS ORDERED: FAMOTIDINE 20 MG TABLET PO PRN (05:24)
[2020-07-21] MEDS ORDERED: BENZOCAINE/MENTHOL AEROSOL SPRAY 56 ML TOP PRN (05:24)
[2020-07-21] MEDS ORDERED: MEASLES,MUMPS&RUBELLA VACC/PF 0.5 ML VIAL SUBCUT PRN (05:24)
[2020-07-21] MEDS ORDERED: DIPHENHYDRAMINE HCL 25 MG CAPSULE PO PRN (05:24)
[2020-07-21] MEDS ORDERED: DIBUCAINE 1% OINTMENT 28 GM TP PRN (05:24)
[2020-07-21] MEDS ORDERED: ZOLPIDEM TARTRATE 5 MG TABLET PO PRN (05:24)
[2020-07-21] MEDS ORDERED: IBUPROFEN 800 MG TABLET ONE (05:46)
--- NOTE | 2020-07-21 06:44 | Delivery Summary ---
Del Sum A-C Datetime Report Generated by CPN: 07/21/2020 06:44 DELIVERY PERSONNEL DELIVERY PERSONNEL: [id number] Delivery Doctor:: Danny Cox MD Labor and Delivery Nurse:: Theersa Valentin RNnurse discharge Nurse:: Yuli Bellavapasqualee, RNC MATERNAL INFORMATION Delivery Anesthesia: None Medications After Delivery: Pitocin 30 Units in 500ml NS/D5W Delivery QBL: 300 Maternal Complications: Precipitous Labor (<3hrs) LABOR SUMMARY EDC: 07/25/2020 00:00 No. Babies in Womb: 1 Attempted: No Labor Anesthesia: None LABOR INFORMATION Reason for Induction: Not Applicable Onset of Labor: 07/21/2020 02:50 Complete Dilatation: 07/21/2020 05:12 Oxytocin: N/A Group B Beta Strep: Negative Antibiotics # of Doses: 0 Name of Antibiotic Given: n/a Steroids Given: None Reason Steroids Not Administered: Not Applicable MEMBRANES Membranes Rupture Method: Spontaneous Rupture of Membranes: 07/21/2020 04:38 Length of Rupture (hr): 0.62 Amniotic Fluid Color: Moderate Meconium Amniotic Fluid Amount: Moderate Amniotic Fluid Odor: Normal STAGES OF LABOR Stage 1 hr: 2 Stage 1 min: 22 Stage 2 hr: 0 Stage 2 min: 3 Stage 3 hr: 0 Stage 3 min: 3 Total Time in Labor hr: 2 Total Time in Labor min: 28 VAGINAL DELIVERY Episiotomy: None Laceration #1: None Laceration Repair: Not Applicable Sponge Count Correct: N/A Sharps Count Correct: N/A CSECTION DELIVERY Primary Indication: N/A Secondary Indication: N/A CSection Incidence: N/A Labor: N/A Elective: N/A CSection Incision: N/A BABY A INFORMATION Infant Delivery Date/Time: 07/21/2020 05:15 Method of Delivery: Vaginal Nurse Controlled Delivery: No Born in Route : No : N/A Forceps: N/A Vacuum Extraction: N/A Shoulder Dystocia : No PRESENTATION/POSITION BABY A Presentation: Cephalic Cephalic Presentation: Vertex Vertex Position: Left Occipital Anterior Breech Presentation: N/A PLACENTA INFORMATION BABY A Placenta Delivery Time : 07/21/2020 05:18 Placenta Method of Delivery: Spontaneous Placenta Status: Delivered SCORES BABY A Heart Rate 1 min: >100 bpm Resp Effort 1 min: Good Cry Reflex Irritability 1 min: Cough or Sneeze or Pulls Away Muscle Tone 1 min: Active Motion Color 1 min: Body Garner, Extremities Blue Resuscitation Effort 1 min: Tactile Stimulation SCORE 1 MIN: 9 Heart Rate 5 min: >100 bpm Resp Effort 5 min: Good Cry Reflex Irritability 5 min: Cough or Sneeze or Pulls Away Muscle Tone 5 min: Active Motion Color 5 min: Body Garner, Extremities Blue SCORE 5 MIN: 9 INFANT INFORMATION BABY A Gestational Age at Delivery: 39.3 Gestational Status: Full Term- 39- 40.6 Weeks Infant Outcome : Liveborn Condition : Stable Infant Sex: Female IDENTIFICATION BABY A Verification Date/Time: 07/21/2020 05:24 ID Band Number: [id number] Mother's Name Verified: Yes RN Verifying : Patricia Burnett/Castillo Kim WEIGHT/LENGTH BABY A Birthweight (gm): 3050 Infant Weight (lb): 6 Weight (oz): 12 Infant Length (in): 19.75 Length (cm): 50.17 CORD INFORMATION BABY A No. Cord Vessels: 3 Nuchal Cord : Around Neck x1, Loose Cord Blood Taken: Yes-For Eval (Mom's Blood Type - or O+) Suction: None ASSESSMENT BABY A Complications: None Physical Findings at Delivery: Within Normal Limits Infant Respirations: Appears Normal Skin to Skin: Yes Skin to Skin Time (min): 60 Filler Shredder Machine/ALS Called : No Transferred To: Remains with Mother BABY B INFORMATION : N/A SIGNATURES Signature: with User ID: [email or web address]
--- NOTE | 2020-07-21 06:44 | Birth Certificate Data ---
Cert Data Datetime Report Generated by CPN: 07/21/2020 06:44 CERTIFICATE DATA Delivery Provider: Danny Cox MD (07/21/2020 00:59:Danny Cox MD ([facility])) 47b. Date of First Visit: 12/05/2019 00:00 (07/21/2020 00:59:Theresa Valentin RN) 47c. Date of Last Visit: 07/20/2020 00:00 (07/21/2020 00:59:Theresa Valentin RN) 47d. Number of Visits: 9 (07/21/2020 00:59:Theresa Valentin RN) 48a. Number of Prev Live Births: 1 (07/21/2020 00:59:Theresa Valentin RN) 48b. Now Livin (07/21/2020 00:59:Theresa Valentin RN) 48c. Live Births Now : 0 (07/21/2020 00:59:QS system process) 48d. Date of Last Live : 01/17/2011 00:00 (07/21/2020 00:59:Theresa Valentin RN) 48e. Losses: 0 (07/21/2020 00:59:Theresa Valentin RN) RISK FACTORS IN THIS 49a. Diabetes: No (07/21/2020 00:59:Theresa Valentin RN) 49b. Hypertension: No (07/21/2020 00:59:Theresa Valentin RN) 49c. Previous Births: 0 (07/21/2020 00:59:Theresa Valentin RN) 49d. Stillborns: No (07/21/2020 00:59:Theresa Valentin RN) 49d. IUGR: No (07/21/2020 00:59:Theresa Valentin RN) 49e. Infertility Treatment: No (07/21/2020 00:59:Theresa Valentin RN) 49f. Previous Cesareans: 0 (07/21/2020 00:59:Theresa Valentin RN) Mother's Height 50b. Height Inches: 65 (07/21/2020 01:09:QS system process) Mother's Weight 51a. Pre- Weight (lbs): 197 (07/21/2020 00:59:Theresa Valentin RN) 51b. Weight at Delivery (lbs): 207 (07/21/2020 02:01:QS system process) 52. Dt Last Normal Menses Began: 10/17/2019 00:00 (07/21/2020 00:59:Theresa Valentin RN) Infections Present/Treated 53a. Gonorrhea: No (07/21/2020 00:59:Theresa Valentin RN) Results this Hospital Visit : Negative (07/21/2020 00:59:Theresa Valentin RN) 53b. Syphilis: No (07/21/2020 00:59:Theresa Valentin RN) 53c. Chlamydia: Yes (07/21/2020 00:59:Theresa Valentin RN) Results this Hospital Visit: Negative (07/21/2020 00:59:Theresa Valentin RN) 53d. Hepatitis B: No (07/21/2020 00:59:Theresa Valentin RN) Results this Hospital Visit: Negative (07/21/2020 00:59:Theresa Valentin RN) 53e. Hepatitis C: Negative (07/21/2020 00:59:Theresa Valentin RN) 53h. Mother Tested for HBsAG: Yes (07/21/2020 00:59:Theresa Valentin RN) 53i. Date Tested: 12/16/2019 00:00 (07/21/2020 00:59:Theresa Valentin RN) 53j. Test Result: Negative (07/21/2020 00:59:Theresa Valentin RN) Obstetric Procedures 54a, b, c. Obstetric Procedures: Ultrasound (07/21/2020 00:59:Theresa Valentin RN) Cigarette Smoking Cigarette Smoking: Former Smoker. [id number] (07/21/2020 00:59:Theresa Valentin RN) 55a. 3 Months Before Preg - Ci (07/21/2020 00:59:Theresa Valentin RN) 55a. Packs: 0 (07/21/2020 00:59:Theresa Valentin RN) 55b. 1st Trimester of Preg- Ci (07/21/2020 00:59:Theresa Valentin RN) 55b. Packs: 0 (07/21/2020 00:59:Theresa Valentin RN) 55c. 2nd Trimester of Preg- Ci (07/21/2020 00:59:Theresa Valentin RN) 55c. Packs: 0 (07/21/2020 00:59:Theresa Valentin RN) 55d. 3rd Trimester of Preg- Ci (07/21/2020 00:59:Theresa Valentin RN) 55d. Packs: 0 (07/21/2020 00:59:Theresa Valentin RN) Onset of Labor 56a. PROM >12 Hrs: 0.62 (07/21/2020 04:38:QS system process) 56b. Precipitous Labor <3 Hrs: 2 (07/21/2020 00:59:QS system process) 56c. Prolonged Labor > 20 Hrs: 2 (07/21/2020 00:59:QS system process) 57a. Induction of Labor: N/A (07/21/2020 00:59:Mere Gibson RN) 57c. Non-Vertex Presentation A: Vertex (07/21/2020 00:59:Mere Gibson RN) 57d. Steroids - Lung Mat: None (07/21/2020 00:59:Mere Gibson RN) 57d. Steroids - Lung Mat: Not Applicable (07/21/2020 00:59:Mere Gibson RN) 57f. Mat [place] or Temp >100.4: 98.4 (07/21/2020 00:59:Theresa Valentin RN) 57g. Moderate/Heavy Meconium: Moderate Meconium (07/21/2020 04:38:Theresa Valentin RN) 57h. Intolerance of Labor: N/A (07/21/2020 00:59:Mere Gibson RN) : N/A (07/21/2020 00:59:Mere Gibson RN) 57i. Epidural/Spinal Anesthesia: None (07/21/2020 00:59:Mere Gibson RN) Method of Delivery 58a. Forceps - Unsuccessful A: N/A (07/21/2020 00:59:Mere Gibson RN) 58b. Vacuum - Unsuccessful A: N/A (07/21/2020 00:59:Mere Gibson RN) 58c. Presentation at 58c. Presentation at - A : Vertex (07/21/2020 00:59:Mere Gibson RN) 58c. Presentation at - A : N/A (07/21/2020 00:59:Mere Gibson RN) 58c. Presentation at - A : Cephalic (07/21/2020 00:59:Mere Gibson RN) Final Route and Method of Del 58d. Baby A Route/Delivery: Vaginal (07/21/2020 00:59:Danny Cox MD ([facility])) 58e. Trial of Labor Attempted: No (07/21/2020 00:59:Mere Gibson RN) 58e. Trial of Labor Attempted A: N/A (07/21/2020 00:59:Mere Gibson RN) 58e. Trial of Labor Attempted B: N/A (07/21/2020 00:59:Mere Gibson RN) Maternal Morbidity 59b. 3rd or 4th Degree Lacs: None (07/21/2020 00:59:Danny Cox MD ([facility]) 59b. 3rd or 4th Degree Lacs: N/A (07/21/2020 00:59:Mere CORETTA Gibson) Birthweight Baby A: 3050 (07/21/2020 00:59:Anjelica Garcia RN) 60a. Pounds : 6 (07/21/2020 00:59:QS system process) 60b. Ounces: 12 (07/21/2020 00:59:QS system process) 61. GA at Delivery Baby A: 39.3 (07/21/2020 00:59:Mere Gibson RN) : Full Term- 39- 40.6 Weeks (07/21/2020 00:59:QS system process) 62a. 5 Minute Baby A: 9 (07/21/2020 00:59:QS system process)
[2020-07-21] MEDS ORDERED: DOCUSATE SODIUM 100 MG CAPSULE ONE (08:19)
[2020-07-21] MEDS ORDERED: SENNOSIDES/DOCUSATE 8.6-50 MG 1 EACH TABLET ONE (08:19)
[2020-07-21] MEDS ORDERED: FERROUS SULFATE 325 MG TABLET PO ONE (08:19)
[2020-07-21] MEDS: IBUPROFEN 800 MG TABLET PO SCH ×3 (10:23→21:49)
[2020-07-21] MEDS: FERROUS SULFATE 325 MG TABLET PO SCH ×2 (10:24→17:34)
[2020-07-21] MEDS: DOCUSATE SODIUM 100 MG CAPSULE PO SCH ×2 (10:24→17:34)
[2020-07-21] MEDS: PRENATAL VITAMIN W DHA CAPSULE PO SCH (10:24)
[2020-07-21] MEDS: SENNOSIDES/DOCUSATE 8.6-50 MG 1 EACH TABLET PO SCH (10:25)
--- NOTE | 2020-07-21 12:52 | PDOC PROGRESS REPORT ---
Subjective-OB Progress Note for:: 07/21/20 Subjective: 24yo s/p delivery day. Voiding and ambulating without difficulty, reports pain well controlled with medication just very tired at this time. Denies any concerns. Physical Exam (OB) Vital Signs: Temp Pulse Resp BP Pulse Ox 97.8 F 71 16 117/62 100 07/21/20 08:45 07/21/20 08:43 07/21/20 08:43 07/21/20 08:43 07/21/20 08:43 Intake & Output 07/20/20 07/21/20 07/22/20 06:59 06:59 06:59 Weight 94.3 kg - General General Appearance: Appears well In distress: None - PIH/Pre-Eclampsia Clonus: Negative - Maternal Morbidity 59. Maternal Morbidity (serious complications experinced by the mother associated with labor and delivery: None of the above - Lochia Lochia Amount: Small 10-25 ml Lochia Color: Rubra/Red - Abdomen Description: Soft Hernia Present: No Fundal Description: Firm, Midline Fundal Height: u/u - u/2 - Respiratory Respiratory Status: No respiratory distress - Extremities Upper extremity: Normal inspection - Neurological Cognition: Normal Orientation: AAOx4 Objective-Diagnostic Laboratory: 07/21/20 03:10 07/21/20 07/21/20 07/21/20 01:02 03:10 03:10 WBC 6.7 RBC 4.15 Hgb 10.2 L Hct 31.9 L MCV 77 L MCH 24.5 L MCHC 31.8 L RDW 16.7 H Plt Count 287 Seg Neutrophils % 65.9 Urine Color YELLOW Urine Appearance CLEAR Urine pH 7.0 Ur Specific [place] 1.009 Urine Protein NEGATIVE Urine Glucose (UA) NEGATIVE Urine Ketones NEGATIVE Urine Blood NEGATIVE Urine Nitrite NEGATIVE Ur Leukocyte Esterase TRACE H Blood Type A NEGATIVE Antibody Screen NEGATIVE Assessment and Plan(PN) - Assessment and Plan (1) Vaginal delivery Is this a current diagnosis for this admission?: Yes Plan: routine pp care (2) Anemia complicating , third trimester Is this a current diagnosis for this admission?: Yes Plan: increase dietary iron and FeS04 BID - Time Spent with Patient Time with patient: Less than 15 minutes Medications reviewed and adjusted accordingly: Yes - Disposition Anticipated Discharge Disposition: Home, Self Care Anticipated Discharge Timeframe: within 48 hours
[2020-07-22] MEDS: IBUPROFEN 800 MG TABLET PO SCH ×3 (06:31→22:23)
[2020-07-22 07:34] LABS: HEMATOCRIT 31.2 % (36.0-47.0); HEMOGLOBIN 9.9 g/dL (12.0-15.5); MEAN CORPUSCULAR HEMOGLOBIN 24.4 pg (27.0-33.4); MEAN CORPUSCULAR HGB CONC 31.8 g/dL (32.0-36.0); MEAN CORPUSCULAR VOLUME 77 fl (80-97); PLATELET COUNT 251 10^3/uL (150-450); RED BLOOD COUNT 4.07 10^6/uL (3.72-5.28); RED CELL DISTRIBUTION WIDTH 16.8 % (11.5-14.0); WHITE BLOOD COUNT 6.2 10^3/uL (4.0-10.5)
[2020-07-22] MEDS: DOCUSATE SODIUM 100 MG CAPSULE PO SCH ×2 (09:13→18:22)
[2020-07-22] MEDS: PRENATAL VITAMIN W DHA CAPSULE PO SCH (09:13)
[2020-07-22] MEDS: FERROUS SULFATE 325 MG TABLET PO SCH ×2 (09:13→18:23)
[2020-07-22] MEDS: SENNOSIDES/DOCUSATE 8.6-50 MG 1 EACH TABLET PO SCH (09:13)
--- NOTE | 2020-07-22 10:31 | PDOC PROGRESS REPORT ---
Subjective-OB Progress Note for:: 07/22/20 Subjective: Doing well, no c/o, , second boy, voiding, ambulating Physical Exam (OB) Vital Signs: Temp Pulse Resp BP Pulse Ox 97.9 F 70 17 101/52 L 100 07/22/20 07:32 07/22/20 07:32 07/22/20 07:32 07/22/20 07:32 07/22/20 07:32 Intake & Output 07/21/20 07/22/20 07/23/20 06:59 06:59 06:59 Intake Total 780 Balance 780 Weight 94.3 kg - PIH/Pre-Eclampsia Clonus: Negative Headache: Absent Epigastric Pain: No Visual Changes: No - Maternal Morbidity 59. Maternal Morbidity (serious complications experinced by the mother associated with labor and delivery: None of the above - Lochia Lochia Amount: Small 10-25 ml Lochia Color: Rubra/Red - Abdomen Description: Soft, Round Hernia Present: No Fundal Description: Firm, Midline Fundal Height: u/u - u/2 Objective-Diagnostic Laboratory: 07/22/20 07:01 07/22/20 07/22/20 07:01 07:01 WBC 6.2 RBC 4.07 Hgb 9.9 L Hct 31.2 L MCV 77 L MCH 24.4 L MCHC 31.8 L RDW 16.8 H Plt Count 251 Blood Type A NEGATIVE Assessment and Plan(PN) - Assessment and Plan (1) Hx of bariatric surgery Is this a current diagnosis for this admission?: Yes (2) Vaginal delivery Is this a current diagnosis for this admission?: Yes (3) Anemia complicating , third trimester Is this a current diagnosis for this admission?: Yes - Time Spent with Patient Time with patient: Less than 15 minutes Medications reviewed and adjusted accordingly: Yes - Disposition Anticipated Discharge Disposition: Home, Self Care Anticipated Discharge Timeframe: within 24 hours
[2020-07-23] MEDS: IBUPROFEN 800 MG TABLET PO SCH (05:05)
[2020-07-23 07:57] VITALS: BP 114/67
[2020-07-23] MEDS: PRENATAL VITAMIN W DHA CAPSULE PO SCH (10:30)
[2020-07-23] MEDS: DOCUSATE SODIUM 100 MG CAPSULE PO SCH (10:31)
[2020-07-23] MEDS: FERROUS SULFATE 325 MG TABLET PO SCH (10:31)
[2020-07-23] MEDS: SENNOSIDES/DOCUSATE 8.6-50 MG 1 EACH TABLET PO SCH (10:31)
--- NOTE | 2020-07-23 12:08 | PDOC DISCHARGE SUMMARY ---
Impression - Admit/DC Date/PCP Admission Date/Primary Care Provider: 07/21/20 02:55 MILAGROS DYE MD Discharge Date: 07/23/20 - Discharge Diagnosis (1) Active labor at term Is this a current diagnosis for this admission?: Yes (2) Anemia complicating , third trimester Is this a current diagnosis for this admission?: Yes (3) Hx of bariatric surgery Is this a current diagnosis for this admission?: Yes (5) Vaginal delivery Is this a current diagnosis for this admission?: Yes - Additional Information Discharge Diet: Regular Discharge Activity: Balance Activity w/Rest, Pelvic Rest Referrals: MILAGROS DYE MD [Primary Care Provider] - (Call [facility] to make 4 week follow up appt) Prescriptions: Ibuprofen [Motrin 800 mg Tablet] 800 mg PO Q8HP PRN #90 tablet PRN Reason: Home Medications: Vit,Calc76/Iron/Folic [Prenatabs Rx Tablet] 1 tab PO DAILY 07/21/20 Ibuprofen [Motrin 800 mg Tablet] 800 mg PO Q8HP PRN #90 tablet 07/23/20 Hospital Course 59. Maternal Morbidity (serious complications experinced by the mother associated with labor and delivery: None of the above Results Laboratory Results: WBC 6.2 10^3/uL (4.0-10.5) 07/22/20 07:01 RBC 4.07 10^6/uL (3.72-5.28) 07/22/20 07:01 Hgb 9.9 g/dL (12.0-15.5) L 07/22/20 07:01 Hct 31.2 % (36.0-47.0) L 07/22/20 07:01 MCV 77 fl (80-97) L 07/22/20 07:01 MCH 24.4 pg (27.0-33.4) L 07/22/20 07:01 MCHC 31.8 g/dL (32.0-36.0) L 07/22/20 07:01 RDW 16.8 % (11.5-14.0) H 07/22/20 07:01 Plt Count 251 10^3/uL (150-450) 07/22/20 07:01 Lymph % (Auto) 24.2 % (13-45) 07/21/20 03:10 [place] % (Auto) 9.1 % (3-13) 07/21/20 03:10 Eos % (Auto) 0.4 % (0-6) 07/21/20 03:10 Baso % (Auto) 0.4 % (0-2) 07/21/20 03:10 Absolute Neuts (auto) 4.4 10^3/uL (1.7-8.2) 07/21/20 03:10 Absolute Lymphs (auto) 1.6 10^3/uL (0.5-4.7) 07/21/20 03:10 Absolute Monos (auto) 0.6 10^3/uL (0.1-1.4) 07/21/20 03:10 Absolute Eos (auto) 0.0 10^3/uL (0.0-0.6) 07/21/20 03:10 Absolute Basos (auto) 0.0 10^3/uL (0.0-0.2) 07/21/20 03:10 Seg Neutrophils % 65.9 % (42-78) 07/21/20 03:10 Urine Color YELLOW 07/21/20 01:02 Urine Appearance CLEAR 07/21/20 01:02 Urine pH 7.0 (5.0-9.0) 07/21/20 01:02 Ur Specific [place] 1.009 07/21/20 01:02 Urine Protein NEGATIVE mg/dL (NEGATIVE) 07/21/20 01:02 Urine Glucose (UA) NEGATIVE mg/dL (NEGATIVE) 07/21/20 01:02 Urine Ketones NEGATIVE mg/dL (NEGATIVE) 07/21/20 01:02 Urine Blood NEGATIVE (NEGATIVE) 07/21/20 01:02 Urine Nitrite NEGATIVE (NEGATIVE) 07/21/20 01:02 Urine Bilirubin NEGATIVE (NEGATIVE) 07/21/20 01:02 Urine Urobilinogen NEGATIVE mg/dL (<2.0) 07/21/20 01:02 Ur Leukocyte Esterase TRACE (NEGATIVE) H 07/21/20 01:02 Urine Ascorbic Acid NEGATIVE (NEGATIVE) 07/21/20 01:02 Urine Opiates Screen NEGATIVE 07/21/20 01:02 Urine Methadone Screen NEGATIVE 07/21/20 01:02 Ur Barbiturates Screen NEGATIVE 07/21/20 01:02 Ur Phencyclidine Scrn NEGATIVE 07/21/20 01:02 Ur Amphetamines Screen NEGATIVE 07/21/20 01:02 U Benzodiazepines Scrn NEGATIVE 07/21/20 01:02 Urine Cocaine Screen NEGATIVE 07/21/20 01:02 U Marijuana (THC) Screen NEGATIVE 07/21/20 01:02 RPR NONREACTIVE (NONREACTIVE) 07/21/20 03:10 Blood Type A NEGATIVE 07/22/20 07:01 Antibody Screen NEGATIVE 07/21/20 03:10 Screen NEGATIVE 07/22/20 07:01 Plan Plan of Treatment: [facility]
== END 2020-07-23 13:05 | disposition home or self-care (01) | DRG 807 ==
LOC: LC 00:52 → LR 02:55 → 2S 08:40
PROVIDERS: ADMIT Obstetrics & Gynecology Gynecology; ATTEND Obstetrics & Gynecology Gynecology
PROC: 10E0XZZ Delivery of Products of Conception, External Approach (ICD-10-PCS; principal; 2020-07-21)
PROC: 3E0234Z Introduction of Serum, Toxoid and Vaccine into Muscle, Percutaneous Approach (ICD-10-PCS; 2020-07-23)
DX: O62.3 Precipitate labor (principal); Z37.0 Single live birth; Z3A.39 39 weeks gestation of pregnancy; O69.81X0 Labor and delivery complicated by cord around neck, without compression, not applicable or unspecified; O77.0 Labor and delivery complicated by meconium in amniotic fluid; O99.844 Bariatric surgery status complicating childbirth; O99.02 Anemia complicating childbirth; D64.9 Anemia, unspecified; O26.893 Other specified pregnancy related conditions, third trimester; Z67.11 Type A blood, Rh negative; Z87.891 Personal history of nicotine dependence
CPT/HCPCS: 36415; 80307; 81005; 85025; 85027; 85461; 86592; 86850; 86900; 86901; J2590; J2790; J2795; J3010; J3490